=== PATIENT | male | born 1995 | race Caucasian/White ===

== ENCOUNTER 2023-11-24 01:04 | Emergency (ER) | payer BC, SELFPAY ==
[2023-11-24 01:11] VITALS: BP 142/73; PULSE 66; RESP 20; TEMP 36.8; O2SAT 100
== END 2023-11-24 04:00 | disposition left against medical advice (07) ==
LOC: ANHED 04:00
DX: J02.9 Acute pharyngitis, unspecified (principal)
CPT/HCPCS: 99199

== ENCOUNTER 2023-11-24 19:46 | Emergency (ER) | payer OTHER, SELFPAY ==
[2023-11-24 19:58] VITALS: BP 129/73; PULSE 70; RESP 24; TEMP 36.3; O2SAT 99
--- NOTE | 2023-11-24 20:18 | ED.URI ---
HPI - URI/Sore Throat General Chief Complaint: Upper Respiratory Infection Stated Complaint: throat burning w increasing pain Time Seen by Provider: 11/24/23 20:18 History of Present Illness HPI Narrative: 28-year-old male presented for complaint of pain. Onset yesterday after eating [place] food. He endorses he then had multiple small BMs which resulted in a small amount of blood on the toilet tissue. He states ?I wanted to be clean. ? he denies straining, rectal swelling or hemorrhoids, however he states sometimes when he sits the pain shoots from the rectum into the throat. The throat pain flares on its own as well. He denies nausea, vomiting, diarrhea, constipation, fevers or chills. Has taken Tylenol, ibuprofen for symptoms. Patient went to the ER last night for symptoms but left due to the wait time. Related Data Allergies Allergy/AdvReac Type Severity Reaction Status Date / Time Sulfa (Sulfonamide Allergy Mild RASH Verified 06/05/12 16:45 Antibiotics) Review of Systems Review of Systems: CONSTITUTIONAL: Denies body aches, fever, chills, or sweats. EYES: Denies visual changes, redness, or discharge. ENT: Reports throat pain Denies rhinorrhea, congestion, or otalgia. CARDIOVASCULAR: Denies chest pain, palpitations, or edema. RESPIRATORY: Denies dyspnea. GASTROINTESTINAL: Reports rectal pain Denies abdominal pain, nausea, vomiting, or diarrhea. SKIN: Denies rash, itching, or wounds. MUSCULOSKELETAL: Denies back pain, joint pain, or myalgia. NEUROLOGIC: Denies headache Exam Narrative: GENERAL: well-appearing, no acute distress. Patient is standing, does not want to sit due to pain EYES: conjunctivae clear ENT: Mucous membranes moist. Oropharynx not erythematous without lesions. Tonsils not enlarged and without exudate. No drooling, no hoarseness, no trismus, uvula midline. No tripod positioning, hot potato voice, or soft palate swelling. NECK: Supple. No lymphadenopathy CHEST: Clear to auscultation, breath sounds equal. No respiratory distress, speaks in full sentences. HEART: Regular rate and rhythm. No murmur heard. ABD: rectal exam shows no external hemorrhoids; declined JADE SKIN: Warm, dry, no rash. NEURO: Alert and oriented x3. Course Course Emergency Course: Patient is aware of diagnosis, understands and agrees to treatment plan. Anticipatory guidance given. Patient agrees to follow-up as directed and is aware of reasons to seek care at the emergency department. Portions of this record may have been created with voice recognition software Level of Care: Express Care Visit Vital Signs Vital signs: Vital Signs Temperature 97.4 F L 11/24/23 19:58 Pulse Rate 70 11/24/23 19:58 Respiratory Rate 24 H 11/24/23 19:58 Blood Pressure 129/73 11/24/23 19:58 Pulse Oximetry 99 11/24/23 19:58 Oxygen Delivery Room Air 11/24/23 19:58 Temperature 97.4 F L 11/24/23 19:58 Pulse Rate 70 11/24/23 19:58 Respiratory Rate 24 H 11/24/23 19:58 Blood Pressure 129/73 11/24/23 19:58 Pulse Oximetry 99 11/24/23 19:58 Oxygen Delivery Room Air 11/24/23 19:58 MDM - URI/Sore Throat MDM Narrative Medical decision making narrative: Neg strep result reviewed with pt. Will send Rx PPI, Declined ER transfer for further evaluation. Recommend f/u with pcp in the morning. Advise supportive treatments. Patient is appropriate for outpatient treatment and follow-up. Differential Diagnosis Differential diagnosis: Likely upper respiratory infection, viral infection and pharyngitis Discharge Plan Discharge Clinical Impression: Pain in throat Patient Disposition: Home, Self-Care Condition: Stable Instructions: Antibiotic Form, GERD (Gastroesophageal Reflux Disease) (ED), Rectal Pain (ED) Additional Instructions: Rapid strep swab was negative today You will be notified in a few days if the culture comes back positive for strep, and appropriate antibiotics will be
== END 2023-11-24 20:36 | disposition home or self-care (01) ==
PROVIDERS: Emergency Provider Nurse Practitioner Family; PCP Family Medicine
DX: R07.0 Pain in throat (principal)
CPT/HCPCS: 87081; 99213; G0463

== ENCOUNTER 2023-11-29 15:08 | Emergency (ER) | payer OTHER, SELFPAY ==
--- NOTE | ~2023-11-29 | XR_ITS ---
XR chest 1V portable DATE: 11/29/2023 18:16 INDICATION: Chest pain TECHNIQUE: Portable upright AP chest on 11/29/2023 at 1811 hours COMPARISON: None FINDINGS: Normal heart size. No hilar or mediastinal enlargement. No pulmonary infiltrate or consolidation, pleural effusion or pulmonary vascular congestion or pneumo thorax is detected. Included skeletal structures are unremarkable. IMPRESSION: No active cardiopulmonary disease Reviewed, dictated and finalized at location A.
[2023-11-29 15:13] VITALS: BP 141/95; PULSE 90; RESP 17; TEMP 36.8; O2SAT 97
[2023-11-29 17:07] VITALS: BP 128/85; PULSE 79; RESP 17; TEMP 36.6; O2SAT 99
--- NOTE | 2023-11-29 17:56 | ED.GENADULT ---
HPI - General Adult General Chief complaint: Unspecified Stated complaint: epigastric pain Time Seen by Provider: 11/29/23 16:42 History of Present Illness HPI narrative: Patient is a 28-year-old male who presents to the emergency department this afternoon complaining of esophageal pain. Patient states that he struggles with acid reflux and is concerned that all the acid reflux has toward through his esophagus. Patient admits to chest pain but states that this is only when he tries to eat anything which is the time that he feels the pain. Denies any current chest pain or shortness of breath. Patient denies any history of esophagitis, denies any heavy alcohol intake, does not take any prescription medication is. Patient states that the only medication that he takes was something that was prescribed to him by the urgent care a few days ago for acid reflux but patient cannot tell me what that medication is. He states that it is not omeprazole. Patient states that he has tried [id number] acid reducers without any relief. Currently denying any nausea or vomiting, any abdominal pain, fevers or chills. No additional symptoms or concerns at this time. Related Data Allergies Allergy/AdvReac Type Severity Reaction Status Date / Time Sulfa (Sulfonamide Allergy Mild RASH Verified 11/29/23 17:05 Antibiotics) Review of Systems Review of Systems: All systems are reviewed and are negative unless stated otherwise in the HPI. Exam Narrative: General: Alert, awake, afebrile, in no acute distress. HEENT: PERRL, no rhinorrhea, no post nasal drip, oropharynx clear. Cardiovascular: Regular rate and rhythm, no murmurs, rubs or gallops, no peripheral edema. Respiratory: Clear to auscultation bilaterally, no tachypnea, no wheezing, no rhonchi, no rubs, no respiratory distress. Abdomen: Soft, nontender, nondistended, no rebound, no guarding, no peritoneal signs. Musculoskeletal: No joint swelling or deformity, normal muscle tone. Skin: No rashes or petechia, no signs of infection. Neurological: Alert and oriented to person, place, and time. Follows all commands. No focal deficits, speech is clear and fluent. Course Vital Signs Vital signs: Vital Signs Temperature 98.2 F 11/29/23 15:13 Pulse Rate 90 11/29/23 15:13 Respiratory Rate 17 11/29/23 15:13 Blood Pressure 141/95 H 11/29/23 15:13 Pulse Oximetry 97 11/29/23 15:13 Temperature 97.9 F 11/29/23 17:07 Pulse Rate 79 11/29/23 17:07 Respiratory Rate 17 11/29/23 17:07 Blood Pressure 128/85 11/29/23 17:07 Pulse Oximetry 99 11/29/23 17:07 Oxygen Delivery Room Air 11/29/23 17:07 Medical Decision Making MDM Narrative Medical decision making narrative: The patient was evaluated by myself in the emergency department. History is obtained from patient who is an independent historian and physical exam was performed. External medical records were reviewed at this time. IV was established and pertinent tests were ordered. Patient was administered Maalox and 40 mg of IV Protonix. Laboratory results obtained revealing no acute process. Imaging studies obtained included CXR which was independently interpreted by me revealing no acute process, which is pending final radiology interpretation. At this time patient was informed of these findings at bedside. Patient was offered a CT chest at this time for further evaluation, however, he was informed that he will likely need an esophagram which we are unable to do at this as this time as we do not have IR, and/or esophageal motility studies/ endoscopy which he will need to follow up with GI to obtain. Patient declined CT chest. He was also instructed that he will need to follow-up with the GI and that he will be provided with the appropriate follow-up and patient is agreeable with this plan. Patient did inform me that the medication he is taking right now is pantoprazole. Differential diagnosis
[2023-11-29 18:05] LABS: Basophils Percent Auto 0.3 % (0.2-1.2); Eosinophils Absolute Auto 0.1 K/mm3 (0-0.3); Eosinophils Percent Auto 0.8 % (0-4.4); Hematocrit 44.7 % (42.0-52.0); Hemoglobin 15.6 g/dL (14.0-18.0); Immature Granulocyte Absolute 0.02 K/mm3 (0.00-0.031); Immature Granulocyte Percent A 0.2 % (0-0.5); Lymphocytes Absolute Auto 2.12 K/mm3 (0.9-3.2); Lymphocytes Percent Auto 20.5 % (18.3-44.2); Mean Corpuscular HGB Conc 34.9 g/dl (32-36); Mean Corpuscular Hemoglobin 28.3 pg (26-34); Mean Corpuscular Volume 81.1 fl (80-100); Monocytes Absolute Auto 0.5 K/mm3 (0.1-0.6); Monocytes Percent Auto 4.4 % (2.6-8.5); Neutrophils Absolute Auto 7.7 K/mm3 (1.3-6.7); Neutrophils Percent Auto 73.8 % (45.5-73.1); Platelet Count Result 284 k/mm3 (150-375); Red Blood Count 5.51 M/mm3 (4.6-6.20); Red Cell Distribution Width 13.1 % (11.5-14.5); White Blood Count 10.4 K/mm3 (4.5-10.0)
[2023-11-29 18:17] LABS: Alanine Aminotransferase 33 U/L (6-50); Albumin Level 4.6 g/dL (3.5-5.1); Alkaline Phosphatase 82 U/L (38-126); Anion Gap 8 mmol/L (4-12); Aspartate Amino Transferase 33 U/L (17-59); Bilirubin,Total 0.8 mg/dL (0.2-1.3); Blood Urea Nitrogen 11 mg/dL (9-20); Calcium 8.9 mg/dL (8.4-10.2); Carbon Dioxide 25 mmol/L (22-30); Chloride 98 mmol/L (98-107); Estimated CRCL calculation 192 ml/min; Estimated Glomerular Filt Rate > 60; Glucose 101 mg/dL (65-110); Potassium 3.8 mmol/L (3.4-5.0); Sodium 131 mmol/L (137-145)
[2023-11-29] MEDS: MAG HYDROX/AL HYDROX/SIMETH 30 ML UDC PO (18:28)
[2023-11-29] MEDS: PANTOPRAZOLE SODIUM IV 40 MG VIAL IV PUSH (18:28)
--- NOTE | 2023-11-29 19:03 | PC.NURSE ---
[place] tape to left 5th toe. Pt tolerated well
[2023-11-29] MEDS: MORPHINE SULFATE (*CRX) 2 MG/ML INJ IV PUSH (19:22)
[2023-11-29 19:24] VITALS: BP 115/80; PULSE 74; RESP 15; O2SAT 100
[2023-11-29 19:49] VITALS: BP 122/87; PULSE 76; RESP 18; TEMP 36.6; O2SAT 99
== END 2023-11-29 19:57 | disposition home or self-care (01) ==
PROVIDERS: Emergency Provider Emergency Medicine; PCP Family Medicine
DX: K21.9 Gastro-esophageal reflux disease without esophagitis (principal); R13.10 Dysphagia, unspecified
CPT/HCPCS: 36415; 71045; 80053; 85025; 96374; 96375; 99284; A9270; J2270; J2470

== ENCOUNTER 2023-12-09 01:01 | Day surgery (SDC) | payer OTHER, SELFPAY ==
[2023-12-08 08:47] VITALS: BMI 41.3
[2023-12-09 06:50] VITALS: BP 123/84; PULSE 79; RESP 18; TEMP 36.1; O2SAT 98
[2023-12-09 06:57] VITALS: BMI 41.5
[2023-12-09] MEDS: LACTATED RINGERS 1,000 ML 150 ML IV CONT (07:31)
--- NOTE | 2023-12-09 07:32 | WPDANESEPPF ---
Anes - Initial Pre Proc Eval Procedure: Operation Date: 12/09/23 08:00 Proposed Procedures p Esophagogastroduodenoscopy - Cheko Schaeffer MD Date/Time: 12/09/23 07:32 Surgeon: Cheko Schaeffer MD Pre Op Diagnosis: dysphagia, disease of esophagus Patient Data Age: 28 Gender: M Height: 1.91 m Weight: 150.9 kg Last Vital Signs Temp 36.1 C L 12/09/23 06:50 Pulse 79 12/09/23 06:50 Resp 18 12/09/23 06:50 BP 123/84 12/09/23 06:50 Pulse Ox 98 12/09/23 06:50 Allergies Allergy/AdvReac Type Severity Reaction Status Date / Time Sulfa (Sulfonamide Allergy Mild RASH Verified 12/09/23 06:55 Antibiotics) Home Medications Medication Instructions Recorded Confirmed Type Magic Mouthwash 50 mL suspension 10 ml PO Q8H PRN pain #50 mL 11/29/23 12/09/23 Rx famotidine 40 mg tablet (Pepcid) 40 mg PO QHS #30 tabs 12/07/23 12/09/23 Rx omeprazole 40 mg capsule,delayed 40 mg PO BID #60 caps 12/07/23 12/09/23 Rx release Patient hx anesthesia problems: none Family hx anesthesia problems: none Results Review: All pre-operative results and documents have been reviewed as part of the pre-operative evaluation. [facility] Past Medical History Medical History (Updated 12/09/23 @ 07:32 by Angel San MD) Esophageal pain Obesity Social History Social History Smoking status: Never smoker Living arrangements: with family Spiritual care concerns: No Anes - Eval Final PreProcedure Day of Procedure 12/09/23 07:32 Patient weight: obese Heart: regular rate and rhythm Lungs: clear to auscultation Airway: Mallampati scale class II Neurological: alert and oriented Last oral intake: >/= 8 hours ASA classification: II Emergent: no Anesthetic plan: proceed Anesthesia type and monitoring: general GIVS and standard monitoring Results Review: All pre-operative results and documents have been reviewed as part of the pre-operative evaluation. Informed Consent: The patient's anesthetic plan and its attendant risks and benefits were discussed with the patient/family/POA. Questions were solicited and answers provided to the satisfaction of the patient/family/POA.
--- NOTE | 2023-12-09 07:53 | WPDHPUPDATE1 ---
History and Physical Update Update Date/Time: 12/09/23 07:53 History and Physical has been reviewed, including an updated exam of the patient. There are NO changes in the patient's condition. Risks, benefits, and alternatives have been discussed and questions answered. Patient agrees to proceed with procedure.
[2023-12-09 08:09] VITALS: BP 105/72; PULSE 72; RESP 21; O2SAT 99
[2023-12-09 08:19] VITALS: BP 115/74; PULSE 69; RESP 19; O2SAT 99
[2023-12-09 08:29] VITALS: BP 106/75; PULSE 74; RESP 19; O2SAT 99
== END 2023-12-09 08:39 | disposition home or self-care (01) ==
PROVIDERS: PCP Family Medicine; Referring Provider Nurse Practitioner Family; Visit Provider Internal Medicine Gastroenterology
PROC: 0DJ08ZZ Inspection of Upper Intestinal Tract, Via Natural or Artificial Opening Endoscopic (ICD-10-PCS; CPT 43235; principal; 2023-12-09 08:00)
DX: K29.50 Unspecified chronic gastritis without bleeding (principal); R13.10 Dysphagia, unspecified; E66.9 Obesity, unspecified; Z68.41 Body mass index [BMI] 40.0-44.9, adult
CPT/HCPCS: 43239; 88305; J2003; J2704; J7120